=== PATIENT | male | born 1995 | race African-American/Black ===

== ENCOUNTER 2018-07-10 14:16 | Outpatient (CLI) | payer OTHER ==
--- NOTE | 2018-07-11 08:34 | CT ---
PRE AND POSTCONTRAST ENHANCED CT IMAGES ABDOMEN AND PELVIS: HISTORY: Gross hematuria, R31.9. FINDINGS: Pre- and postcontrast-enhanced CT images of the abdomen and pelvis obtained before and after administ ration of IV contrast. The lung bases are unremarkable. No evidence of free intraperitoneal air seen. The liver, spleen, gallbladder, pancreas, adrenal glands, and kidneys are unremarkable. No definite evidence of renal parenchymal lesions seen. No evidence of ureteral obstruction or distention seen. The urinary bladder is unremarkable. The small bowel is not distended. No significant evidence of bowel obstruction seen. Oral contrast was not given which makes evaluation of the hallow viscous difficult. IMPRESSION: No definite visible evidence of pathology. POS: [facility]
== END 2018-07-10 14:17 | disposition home or self-care (01) ==
LOC: SCSCT 14:16
DX: R31.9 Hematuria, unspecified (principal)
CPT/HCPCS: 74178